=== PATIENT | male | born 1980 | race Two or more races ===

== ENCOUNTER 2022-10-04 10:45 | Emergency (ER) | payer OTHER ==
[~2022-10-04] VITALS: Ht 175.3 cm; Wt 90.3 kg
== END 2022-10-04 14:00 | disposition home or self-care (01) ==
LOC: ER 10:45
DX: R73.9 Hyperglycemia, unspecified (principal); Z88.6 Allergy status to analgesic agent

== ENCOUNTER 2023-01-18 00:13 | Emergency (ER) | payer OTHER ==
[~2023-01-18] VITALS: Ht 167.6 cm; Wt 74.4 kg
[2023-01-18] MEDS ORDERED: HUMALOG100 UNIT/2 (00:19)
[2023-01-18] MEDS ORDERED: LANTUS SOL100 UNIT/1 (00:20)
[2023-01-18] MEDS ORDERED: NEURONTIN600 M1 PO (04:21)
== END 2023-01-18 05:07 | disposition home or self-care (01) ==
LOC: ER 00:13
DX: G62.9 Polyneuropathy, unspecified (principal); Z88.6 Allergy status to analgesic agent; E10.9 Type 1 diabetes mellitus without complications; Z79.4 Long term (current) use of insulin

== ENCOUNTER 2023-02-06 17:04 | Emergency (ER) | payer OTHER ==
[~2023-02-06] VITALS: Ht 175.3 cm; Wt 80.3 kg
[~2023-02-06 17:04] MED LIST: HUMALOG100 UNIT/2; LANTUS SOL100 UNIT/1; NEURONTIN600 M1 PO
[2023-02-06] MEDS ORDERED: HUMALOG100 UNIT/2 IM (18:14)
[2023-02-06] MEDS ORDERED: LANTUS SOL100 UNIT/1 IM (18:14)
[2023-02-06] MEDS ORDERED: NORFLEX100MG PO (20:25)
== END 2023-02-06 20:47 | disposition home or self-care (01) ==
LOC: ER 17:05
DX: M94.0 Chondrocostal junction syndrome [Tietze] (principal); Z88.6 Allergy status to analgesic agent

== ENCOUNTER 2023-12-19 22:01 | Emergency (ER) | payer OTHER ==
[~2023-12-19] VITALS: Ht 175.3 cm; Wt 91.6 kg
[~2023-12-19 22:01] MED LIST changes: +HUMALOG100 UNIT/2 IM; +LANTUS SOL100 UNIT/1 IM; +NORFLEX100MG PO
[2023-12-19] MEDS ORDERED: FAMOtidine 10 MG/ML (4ML VIAL) IV ONE (22:30)
[2023-12-19] MEDS ORDERED: MEPERIDINE HCL/PF 25 MG/ML VIAL IM ONE (22:30)
[2023-12-19] MEDS ORDERED: 0.9 % SODIUM CHLORIDE 1,000 ML IV ONE (22:30)
[2023-12-19] MEDS ORDERED: CEFTRIAXONE SODIUM 1,000 MG VIAL IV ONE (22:30)
[2023-12-19 22:58] LABS: HEMATOCRIT 37.2 % (39.0-48.0); HEMOGLOBIN 12.5 g/dL (13-16.00); MEAN CELL VOLUME 81.7 fL (80.0-100.00); MEAN CORPUSCULAR HEMOGLOBIN 27.5 pg (27.00-32.0); MEAN CORPUSCULAR HGB CONC 33.6 g/dl (32.0-36.0); PLATELET COUNT 186 K/uL (150-450); RED BLOOD COUNT 4.56 M/uL (4.00-6.00); RED CELL DISTRIBUTION WIDTH 17.3 % (11.5-14.5)
[2023-12-19 23:12] LABS: ALBUMIN 4.2 gm/dL (3.4-5.0); BILIRUBIN TOTAL 0.66 mg/dL (0.3-1.2); CALCIUM 9.4 mg/dL (8.5-10.1); CREATININE SERUM 1.03 mg/dL (0.70-1.30); GFR 79.58; GLOBULINA 4.1 G/DL (2.4-3.5); POTASSIUM 4.17 mEq/L (3.5-5.1); TOTAL PROTEIN 8.3 gm/dL (6.4-8.2)
[2023-12-19 23:17] LABS: C-REACTIVE PROTEIN 0.58 MG/DL (0.00-0.29)
[2023-12-19 23:21] LABS: ERYTHROCYTE SEDIMENTATION RATE 14 mm/hr
[2023-12-19] MEDS ORDERED: INSULIN REGULAR, HUMAN 1,000 UNIT/10 ML UNITS SUBCUTANEO ONE (23:30)
[2023-12-19 23:38] LABS: PH,URINE 5.5 (5.0-8.0); URINE APPEARANCE Clear; URINE BILIRRUBIN Negative (NEGATIVE); URINE BLOOD Negative; URINE COLOR Yellow; URINE KETONE Negative (NEGATIVE); URINE LEUKOCYTE Negative; URINE NITRATE Negative; URINE PROTEIN Negative (NEGATIVE); URINE UROBILINOGEN 0.2 E.U./dl
[2023-12-19 23:45] LABS: URINE BACTERIA 3.7 uL (0.0-1933); URINE GLUCOSE >=1000 MG/DL (NEGATIVE); URINE RBC 0.6 uL (0.0-20.8); URINE WBC 0.4 uL (0.0-23.2)
[2023-12-19 23:50] VITALS: BP 101/64; O2SAT 99
[2023-12-20] MEDS ORDERED: INSULIN REGULAR, HUMAN 1,000 UNIT/10 ML UNITS SUBCUTANEO STA (00:10)
== END 2023-12-20 04:32 | disposition home or self-care (01) ==
LOC: ER 22:02
PROVIDERS: General Practice
DX: R73.9 Hyperglycemia, unspecified (principal)

== ENCOUNTER 2025-02-17 14:58 | Emergency (ER) | payer OTHER ==
[~2025-02-17] VITALS: Ht 175.3 cm; Wt 79.8 kg
[2025-02-17] MEDS ORDERED: HORIZANT300 MG (15:53)
[2025-02-17] MEDS ORDERED: LIPITOR40 M1 (15:54)
[2025-02-17 16:53] LABS: BASO % 0.4 % (0.1-1.2); EOS # 0.16 (0.04-0.54); EOS % 2.1 % (0.7-7.0); LYMPH # 1.89 (1.18-3.74); LYMPH % 24.8 % (19.3-53.1); MEAN PLATELET VOLUME 8.40 fl (9.4-12.4); MONO # 0.39 (0.24-0.82); MONO % 5.1 % (4.7-12.5); NEUT # 5.14 (1.56-6.13); NEUT % 67.3 % (34.0-71.1); RED CELL DISTRIBUTION WIDTH 14.1 % (11.6-14.4)
[2025-02-17 16:57] LABS: ERYTHROCYTE SEDIMENTATION RATE 63 mm/hr (0-15)
[2025-02-17 17:14] LABS: URINE APPEARANCE Clear; URINE BILIRRUBIN Negative (NEGATIVE); URINE BLOOD Negative; URINE COLOR Yellow; URINE KETONE Negative (NEGATIVE); URINE LEUKOCYTE Trace; URINE NITRATE Negative; URINE PROTEIN Negative (NEGATIVE); URINE UROBILINOGEN 0.2 E.U./dl
[2025-02-17 17:15] LABS: URINE BACTERIA 154.7 uL (0.0-1933); URINE EPITHELIAL CELLS 8.1 uL (0.0-38.8); URINE RBC 3.6 uL (0.0-20.8); URINE WBC 145.8 uL (0.0-23.2)
[2025-02-17 17:19] LABS: ALT/SGPT 22.0 U/L (12-78); AST/SGOT 17.0 U/L (15-37); BILIRUBIN TOTAL 0.34 mg/dL (0.3-1.2); BUN CREA RATIO 22.0 (7.0-25.0); CREATININE SERUM 0.58 mg/dL (0.70-1.30); GFR 152.91; GLOBULINA 3.7 G/DL (2.4-3.5); GLUCOSE FASTING 149.0 mg/dL (65-100); OSMOLALITY SERUM 280.0 MOSM/KG (275-295)
[2025-02-17 17:24] LABS: URINE CAST 0.58 uL (0.0-1.40); URINE GLUCOSE >=1000 MG/DL (NEGATIVE)
[2025-02-17 18:52] LABS: D DIMER 0.52 MG/L; INR 0.96
[2025-02-17] MEDS ORDERED: CEFTRIAXONE SODIUM 2,000 MG VIAL IV STA (19:50)
[2025-02-17] MEDS ORDERED: 0.9 % SODIUM CHLORIDE 1,000 ML IV SCH ×2 (19:50→22:30)
[2025-02-17] MEDS ORDERED: MORPHINE SULFATE 4 MG/ML CARTRIDGE IV STA (19:50)
[2025-02-18] MEDS ORDERED: MORPHINE SULFATE 4 MG/ML CARTRIDGE IV STA (06:20)
[2025-02-18] MEDS ORDERED: DOLOGESIC 500-1 EACH PO (10:53)
== END 2025-02-18 11:17 | disposition home or self-care (01) ==
LOC: ER 14:58
PROVIDERS: Physician Assistant Medical
DX: M79.605 Pain in left leg (principal); R60.0 Localized edema; E11.9 Type 2 diabetes mellitus without complications; Z79.4 Long term (current) use of insulin; Z88.6 Allergy status to analgesic agent